=== PATIENT | male | born 2000 | race Caucasian/White ===

== ENCOUNTER 2021-07-07 14:52 | Emergency (ER) | payer BC ==
[2021-07-07] MEDS ORDERED: Acetaminophen/HYDROcodone 325-5 MG Tab PO ONE (15:01)
[2021-07-07] MEDS ORDERED: Ketorolac 30 MG/ML SDV IM ONE (15:02)
== END 2021-07-07 16:33 | disposition home or self-care (01) ==
LOC: FB.ED 14:52
DX: S42.022A Displaced fracture of shaft of left clavicle, initial encounter for closed fracture (principal); W20.8XXA Other cause of strike by thrown, projected or falling object, initial encounter
CPT/HCPCS: 73000; 73030; 73060; 96372; 99283; A9270; J1885